=== PATIENT | male | born 1975 | race Caucasian/White ===

== ENCOUNTER 2018-03-13 01:59 | Emergency (ER) | payer MEDICAID, BC ==
[2018-03-13] MEDS: ONDANSETRON 4 MG INJ IV (02:48)
[2018-03-13] MEDS: morphine 4 MG/ML VIAL IV ×2 (02:49→04:14)
[2018-03-13] MEDS: SOD CHLORIDE 0.9% 1,000 ML IV (02:50)
[2018-03-13 02:58] LABS: ADD MAN DIFF? NO
[2018-03-13 03:01] LABS: WHITE BLOOD COUNT 9.5 10^3/ul (4.8-10.8)
[2018-03-13 03:01] LABS: BASOPHIL # 0.1 10^3/ul (0.0-0.1); BASOPHILS % 0.6 % (0.0-2.0); EOSINOPHILS # 0.3 10^3/ul (0.0-0.5); EOSINOPHILS % 2.6 % (0.0-7.0); HEMATOCRIT 46.7 % (42.0-52.0); HEMOGLOBIN 15.6 g/dl (14.0-18.0); LYMPHOCYTES # 2.1 10^3/ul (0.8-2.9); LYMPHOCYTES % 21.8 % (15.0-51.0); MEAN CORPUSCULAR HEMOGLOBIN 30.2 pg (29.0-33.0); MEAN CORPUSCULAR HGB CONC 33.4 g/dl (32.0-37.0); MEAN CORPUSCULAR VOLUME 90.3 fl (82.0-101.0); MEAN PLATELET VOLUME 10.7 fl (7.4-10.4); MONOCYTES % 10.1 % (0.0-11.0); NEUTROPHILS % 63.7 % (39.0-77.0); PLATELET COUNT 276 10^3/UL (140-415); RED BLOOD COUNT 5.17 10^6/ul (4.70-6.10); RED CELL DISTRIBUTION WIDTH 14.6 % (11.5-14.5)
[2018-03-13 03:03] LABS: ADD UMIC NO; UR ASCORBIC ACID 40 mg/dL (NEGATIVE); UR BILIRUBIN (Dip) NEGATIVE (NEGATIVE); UR BLOOD (Dip) NEGATIVE (NEGATIVE); UR CLARITY CLEAR (CLEAR); UR COLOR YELLOW (YELLOW); UR GLUCOSE (Dip) NEGATIVE (NEGATIVE); UR KETONES (Dip) NEGATIVE (NEGATIVE); UR LEUKOCYTE ESTERASE (Dip) NEGATIVE Leu/ul (NEGATIVE); UR NITRITE (Dip) NEGATIVE (NEGATIVE); UR SPECIFIC GRAVITY (Dip) 1.017 (1.003-1.030); UR TOTAL PROTEIN (Dip) NEGATIVE (NEGATIVE); UR UROBILINOGEN (Dip) NEGATIVE (NEGATIVE)
[2018-03-13] MEDS: LABETALOL HCL 20MG INJ IV (03:56)
[2018-03-13 03:58] LABS: TROPONIN-I 0.037 ng/ml (0.00-0.12)
[2018-03-13] MEDS: KETOROLAC 30 MG INJ IV (04:11)
[2018-03-13 04:32] LABS: ALANINE AMINOTRANSFERASE 63 IU/L (13-69); ALBUMIN/GLOBULIN RATIO 1.33; ALKALINE PHOSPHATASE 66 IU/L (42-121); ANION GAP 18 (8-16); ASPARTATE AMINO TRANSFERASE 71 IU/L (15-46); BLOOD UREA NITROGEN 10 mg/dl (7-20); CALCIUM 9.2 mg/dl (8.4-10.2); CARBON DIOXIDE 27 mmol/L (21-31); CHLORIDE 105 mmol/L (97-110); CREATININE 1.12 mg/dl (0.61-1.24); GLUCOSE 102 mg/dl (70-220); LIPASE 56 U/L (23-300); POTASSIUM 3.5 mmol/L (3.5-5.1); SODIUM 146 mmol/L (135-144)
[2018-03-13] MEDS: AMLODIPINE 10 MG TAB PO (06:10)
== END 2018-03-13 06:23 | disposition home or self-care (01) ==
LOC: E/R 01:59
DX: K80.50 Calculus of bile duct without cholangitis or cholecystitis without obstruction (principal); I16.1 Hypertensive emergency
CPT/HCPCS: 36415; 76705; 80053; 81003; 83690; 84484; 85025; 93005; 96361; 96374; 96375; 96376; 99291-25